=== PATIENT | female | born 1975 | race Caucasian/White ===

== ENCOUNTER → 2017-04-13 | Day surgery (SDC) | payer OTHER ==
--- NOTE | 2017-04-13 09:27 | MMO ---
MAMMOGRAPHIC GUIDANCE FOR STEREOTACTIC BIOPSY: CLINICAL HISTORY: A 42-year-old female with a history of prior indeterminate breast calcifications who presents for bio psy as followup. Note is made that the patient has had an interval gestation and reports a 2-month state. The patient did deny breast feeding prior to consenting to the procedure. The patient was appropriat [place] consented and escorted to the mammographic procedural suite. Clinical Application Manager imaging was performed. Upon obtaining blast furnace auxiliaries supervisor images, the breast density is pronounced and does obscure reliable visualization of t he previous calcifications. This could be due to the patient's recent state. Therefore, procedure could not be reliably performed at this time. The patient should undergo a short-term foll owup diagnostic mammogram to evaluate for the presence of the calcifications, which can be performed in approximately 3-4 months placing the patient at an approximately 6-month state. This w ould attempt to evaluate the calcifications in the event a breast density is obscuring the se findings. IMPRESSION: The findings and recommendations were discussed with the patient at the time of the procedural imagin g. The patient should followup with her primary care provider for scheduling of the short-term follo wup diagnostic mammogram. Mammography navigator, Luz Reyes, will also assist with mammograph ic and procedural followup, ad indicated. POS: JOSE
== END ==
LOC: BICMAMMO 07:36
PROVIDERS: ATTEND Family Medicine
DX: R92.1 Mammographic calcification found on diagnostic imaging of breast (principal); Z53.8 Procedure and treatment not carried out for other reasons
CPT/HCPCS: 19081

== ENCOUNTER → 2017-10-09 | Day surgery (SDC) | payer OTHER ==
--- NOTE | 2017-10-09 10:18 | MMO ---
STEREOTACTIC RIGHT BREAST BIOPSY: CLINICAL HISTORY: Indeterminate right breast calcifications, upper aspect, middle depth right breast. PROCEDURE: Informed consent was obtained from the patient via an full time staff interpreter prior to the procedure. The patien t was then escorted to the procedure suite and placed in the prone position with the right breast alice juani into compression. Using stereotactic coordinates, calcifications of interest in the upper right breast middle depth were localized, and confirmed with stereotactic coordinates. The right breast wa s prepped and draped in standard sterile fashion. Local anesthesia with buffered 1% Lidocaine was th en performed and a small skin incision was made. Through the incision site, a 10-gauge vacuum assist stereotactic biopsy needle was advanced to the leading edge of the calcifications which confirmed wi th stereotactic mammographic imaging. The needle was then deployed within the site of calcifications and 6 core specimens were then acquired. The specimens were radiographed and calcifications of inte rest were present within the specimen. The biopsy needle was removed. A biopsy marker clip was adva nced to the site of biopsy and a biopsy marker clip was deployed. This was confirmed mammographicall y. There are no procedural complications. The patient tolerated the procedure well. IMPRESSION: Technically successful stereotactic biopsy of the right breast, yielding calcifications of interest. Pathology results are pending. The patient will be notified of the findings when they are received. POS: JOSE
--- NOTE | 2017-10-09 10:20 | MMO ---
SPECIMEN RADIOGRAPH: CLINICAL HISTORY: Stereotactic biopsy right breast, upper aspect, middle depth for indeterminate calcifications. FINDINGS: Specimen radiographs were performed which revealed calcifications of interest within the radiograph s pecimens. IMPRESSION: Calcifications of interest are present within the radiographed specimens. POS: JOSE
--- NOTE | 2017-10-09 10:26 | MMO ---
DIAGNOSTIC RIGHT MAMMOGRAM: CLINICAL HISTORY: Postprocedural right diagnostic mammographic views status post right breast biopsy for indeterminate calcifications of the upper right breast middle depth. FINDINGS: Postprocedural diagnostic mammographic views including MLO and CC reveal deployment of the clip withi n the upper aspect of the right breast, middle depth. Biopsy tract does traverse the breast from a l ateral approach with air located to the central aspect. Calcifications previously noted have decreas ed in number. Clip is present. IMPRESSION: Status post stereotactic biopsy of right breast with clip deployment. POS: JOSE
== END ==
LOC: MAMMO 06:49
PROVIDERS: ATTEND Family Medicine
PROC: 0HBT3ZX Excision of Right Breast, Percutaneous Approach, Diagnostic (ICD-10-PCS; principal; 2017-10-09)
DX: D24.1 Benign neoplasm of right breast (principal)
CPT/HCPCS: 19081; 76098; 88305

== ENCOUNTER 2020-08-12 15:27 | Outpatient (CLI) | payer OTHER | END 2020-08-12 15:28 | disposition home or self-care (01) | LOC: BICMAMMO 15:27 | PROVIDERS: ATTEND Nurse Practitioner | DX: Z12.31 Encounter for screening mammogram for malignant neoplasm of breast (principal); Z91.89 Other specified personal risk factors, not elsewhere classified | CPT/HCPCS: 77063; 77067 ==

== ENCOUNTER 2023-08-30 09:05 | Outpatient (CLI) | payer BC, OTHER | END 2023-08-30 09:06 | disposition home or self-care (01) | LOC: BICMAMMO 09:05 | PROVIDERS: ATTEND Family Medicine | DX: Z12.31 Encounter for screening mammogram for malignant neoplasm of breast (principal); Z91.89 Other specified personal risk factors, not elsewhere classified | CPT/HCPCS: 77063; 77067 ==

== ENCOUNTER 2024-12-12 08:57 | Outpatient (CLI) | payer BC | END 2024-12-12 08:58 | disposition home or self-care (01) | LOC: BICMAMMO 08:57 | PROVIDERS: ATTEND Family Medicine | DX: Z12.31 Encounter for screening mammogram for malignant neoplasm of breast (principal); Z91.89 Other specified personal risk factors, not elsewhere classified | CPT/HCPCS: 77063; 77067 ==